=== PATIENT | female | born 2000 | race Caucasian/White ===

== ENCOUNTER → 2018-07-08 | Outpatient (CLI) | payer OTHER ==
[~2018-07-08] MED LIST: HYDR-385 PO
== END ==
LOC: LAB 17:33
PROVIDERS: ATTEND Nurse Practitioner Family
DX: M79.662 Pain in left lower leg (principal)
CPT/HCPCS: 36415; 85379

== ENCOUNTER 2018-07-10 18:39 | Emergency (ER) | payer OTHER ==
--- NOTE | 2018-07-10 19:07 | ER Report ---
History and Physical Time Seen By MD: 18:52 Hx. of Stated Complaint: pt started having swelling in bilateral lower legs on friday. [facility] they measured legs and assessed pt. pt had a d dimer drawn which was negative. pts left leg is still swollen and she is having pain. pt sates she is on controll and is woried about a clot HPI/ROS CHIEF COMPLAINT: Left lower leg pain HISTORY OF PRESENT ILLNESS: 17-year-old female patient presents to emergency room with complaint of left lower leg pain. Patient states that she was doing physical training for [employer]. She states that she did that on Friday and had some discomfort to the left lower leg. She states that that on Friday she went was doing stairs for 07/07 and after that she was having significant amounts of pain. She states that she has pain anytime she ambulate. She states the pain seems to be worse with plantar flexion of her foot. She denies any numbness tingling in the toes. She states she did see primary care at the [facility] who told her take ibuprofen and follow-up if condition worsens. Patient states that she has a follow-up appointment on Friday but feels the pain is just too significant. She states she's been using crutches, however she is having significant pain when using the crutches as well. Allergies: Coded Allergies: No Known Drug Allergies (Unverified , 07/10/18) Home Meds Active Scripts Hydrocodone Bit/Acetaminophen (HYDROCODON-ACETAMINOPHEN 5-325) 1 Each Tablet, 1 EACH PO Q4-6H PRN for PAIN, #6 TAB Prov:MELY VALENCIA 07/10/18 Past Medical/Surgical History Patient denies any pertinent medical or surgical history. Reviewed Nurses Notes: Yes Hx Substance Use Disorder: No Hx Alcohol Use: No Constitutional Vital Sign - Last 24 Hours 07/10/18 07/10/18 07/10/18 07/10/18 18:45 18:45 18:48 19:00 Temp 97.8 Pulse ??? 91 81 Resp 16 B/P (MAP) 102/84 102/84 (90) 120/79 (93) Pulse Ox 93 92 O2 Delivery Room Air 07/10/18 07/10/18 07/10/18 07/10/18 19:15 19:30 19:45 20:00 Pulse 88 83 76 69 B/P (MAP) 85/78 (80) 117/73 (88) 97/65 (76) 112/73 (86) Pulse Ox 96 97 95 95 07/10/18 07/10/18 07/10/18 07/10/18 20:15 20:20 20:30 20:35 Pulse 65 71 68 B/P (MAP) 108/69 (82) 107/76 (86) Pulse Ox 94 92 92 07/10/18 20:45 B/P (MAP) 126/80 (95) Physical Exam General Appearance: The patient is alert, has no immediate need for airway protection and no current signs of toxicity. Respiratory: Chest is non tender, lungs are clear to auscultation. Cardiac: regular rate and rhythm Gastrointestinal: Abdomen is soft and non tender, no masses, bowel sounds normal. Musculoskeletal: Neck: Neck is supple and non tender. Extremities have full range of motion and are non tender. Patient does have tenderness to the anterior aspect of the left lower leg. There is no bruising or swelling noted. Skin: No rashes or lesions. DIFFERENTIAL DIAGNOSIS: After history and physical exam differential diagnosis was considered for carter splints, stress fracture, DVT. Medical Decision Making EKG/Imaging Imaging TECHNIQUE: TIBIA FIBULA LEFT COMPARISON: None FINDINGS: Normal alignment without evidence of fracture or dislocation. IMPRESSION: Radiographically normal. Report Dictated By: Diana Og MD at 07/10/2018 7:32 PM Report E-Signed By: Diana Og MD at 07/10/2018 7:36 PM Bilateral lower extremity duplex venous ultrasound Indication: Bilateral leg swelling and pain. Comparison: None Available Findings: Duplex Doppler and color flow imaging was performed. The bilateral common femoral, femoral, and popliteal veins are all patent and compressible with normal Doppler wave forms. There are normal responses to augmentation. The bilateral posterior tibial and peroneal veins are clear. The proximal greater saphenous veins are also normal. Subcutaneous tissues are unremarkable. Impression: 1. No evidence of deep venous thrombosis of the bilateral lower extremities. Report Dictated By: Graeme Alarcon at 07/10/2018 8:22 PM Report E-Signed By: Graeme Alarcon at 07/10/2018 8:23 PM ED Course/Re-evaluation ED Course Patient was admitted in exam room, history of physical or obtained. Differential diagnoses were considered. I examination patient had tenderness to the left lower leg. An x-ray was done as well as an ultrasound. The results of the x-ray of the ultrasound were negative. I discussed the findings with the patient. We'll go ahead and discharge her home. I believe that we are likely looking at a 7 splint. We'll go ahead and place her in a walking boot to help the muscles rest. She is to follow-up with her primary care provider as previously scheduled on Friday. If she is pretty persistent pain for the next week or like her to go ahead and follow-up with orthopedics for evaluation of a stress fracture which may include an MRI. Patient verbalized understanding and agreement with plan. Decision to Disposition Date: Jul 10, 2018 Decision to Disposition Time: 20:52 Depart Departure Latest Vital Signs Vital Signs Date Time Temp Pulse Resp B/P (MAP) Pulse Ox O2 Delivery O2 Flow Rate FiO2 07/10/18 20:45 126/80 (95) 07/10/18 20:35 68 92 07/10/18 18:45 97.8 16 Room Air Impression: Primary Impression: Carter splint Condition: Improved Disposition: HOME OR SELF-CARE New Scripts Hydrocodone Bit/Acetaminophen (HYDROCODON-ACETAMINOPHEN 5-325) 1 Each Tablet 1 EACH PO Q4-6H PRN for PAIN, #6 TAB Prov: MELY VALENCIA 07/10/18 Patient Instructions: Carter Splints (ED) Additional Instructions: Wear the boot when you are up moving around. Ice the carter 2-3 times a day for 10-15 minutes. Limit weight bearing as tolerated. You may continue to walk with the boot on. Return to the ER if condition worsens. I do worry that you may have a stress fracture, if there is no improvement in the next week you need to follow up with [facility]. You may continue to take the Ibuprofen as needed for pain in addition to the pain medication, but no Tylenol. Problem Qualifiers Primary Impression: Carter splint Encounter type: initial encounter Laterality: left Qualified Codes: S86.892A - Other injury of other muscle(s) and tendon(s) at lower leg level, left leg, initial encounter MELY VALENCIA Jul 10, 2018 19:07
--- NOTE | 2018-07-10 19:40 | RADIOLOGY IMAGING REPORT ---
FACILITY: [facility] PATIENT NAME: Matilda Quiroga : 2000 MR: [id number] V: [id number] EXAM DATE: ORDERING PHYSICIAN: MELY VALENCIA TECHNOLOGIST: [place] [facility] [place]: Matilda Quiroga : 2000 Visit/Account:[id number] Date of Sevice: 07/10/2018 INDICATION: swelling and pain. DATE: 07/10/2018 7:32 PM. TECHNIQUE: TIBIA FIBULA LEFT COMPARISON: None FINDINGS: Normal alignment without evidence of fracture or dislocation. IMPRESSION: Radiographically normal. Report Dictated By: Diana Og MD at 07/10/2018 7:32 PM Report E-Signed By: Diana Og MD at 07/10/2018 7:36 PM WSN:[id number]
--- NOTE | 2018-07-10 20:26 | RADIOLOGY IMAGING REPORT ---
FACILITY: [facility] PATIENT NAME: Matilda Quiroga : 2000 MR: [id number] V: [id number] EXAM DATE: ORDERING PHYSICIAN: MELY VALENCIA TECHNOLOGIST: Location: [facility] Patient: Matilda Quiroga : 2000 Visit/Account:[id number] Date of Sevice: 07/10/2018 Bilateral lower extremity duplex venous ultrasound Indication: Bilateral leg swelling and pain. Comparison: None Available Findings: Duplex Doppler and color flow imaging was performed. The bilateral common femoral, femoral , and popliteal veins are all patent and compressible with normal Doppler wave forms. There are norm al responses to augmentation. The bilateral posterior tibial and peroneal veins are clear. The proximal greater saphenous veins are also normal. Subcutaneous tissues are unremarkable. Impression: 1. No evidence of deep venous thrombosis of the bilateral lower extremities. Report Dictated By: Graeme Alarcon at 07/10/2018 8:22 PM Report E-Signed By: Graeme Alarcon at 07/10/2018 8:23 PM WSN:[id number]
[2018-07-10 20:45] VITALS: BP 126/80
[2018-07-10] MEDS ORDERED: HYDR-385 PO (20:49)
[2018-07-10] MEDS ORDERED: ACET/HYDROC 5/325MG TH ER ONLY 2 TAB/BOTTLE PO ONE (20:55)
== END 2018-07-10 21:05 | disposition home or self-care (01) ==
LOC: ER 18:53
DX: S86.892A Other injury of other muscle(s) and tendon(s) at lower leg level, left leg, initial encounter (principal)
CPT/HCPCS: 93970; 99284